=== PATIENT | female | born 1945 | race Caucasian/White ===

== ENCOUNTER → 2018-05-23 | Outpatient (CLI) | payer OTHER, BC ==
[~2018-05-23] VITALS: Ht 157.5 cm; Wt 65.8 kg
[~2018-05-23] MED LIST: ALEVE220 MG PO; CLOTRIMAZOLE-BE15 GM TOP; CYCLOBENZAPRINE5 MG PO; GABAPENTIN 100100 MG PO; MOBIC7.5 MG PO; NORCO 5-325 TA1 EACH PO
--- NOTE | ~2018-05-23 | HPC ---
[facility] [place] [place] [address] PAIN MANAGEMENT CONSULTATION Name: AXEL MILLER Room #: REG [facility].#: [id number] Admission: 05/23/18 Attend Phys: Anuj Golden MD Discharge: Date of : 47 Report #: [id number] THIS REPORT FOR: //name// CC: SIMBA Golden DATE OF SERVICE: 05/23/2018 CHIEF COMPLAINT: Low back pain with radiculopathy on the left involving the S1 distribution. HISTORY OF PRESENT ILLNESS: The patient is a 72-year-old, I am seeing today at an urgent request from Dr. Anna. He called in yesterday asking us to work her in as quickly as possible for excruciating pain into the left leg. She presents to the pain clinic today slightly better than she was yesterday. Her pain intensity yesterday was 10, today is 5/10, but still affecting her ambulation and day-to-day activities. She reports that the pain follows the low back through the hip and down the posterior lateral aspect of the leg. This is consistent with an S1 radiculopathy. This helps a bit with the differential diagnosis and also the location of my chosen injection based upon the findings, which will be discussed below on the MRI. SOCIAL HISTORY: The patient lives in her own home with her disabled son. He has a learning disability, but works fulltime. She denies use of tobacco or alcohol. MEDICATIONS: Naproxen sodium one to two tablets as needed, cyclobenzaprine given and discontinued, hydrocodone given and discontinued, gabapentin 100 mg 3 times daily which was helpful yesterday, meloxicam last dose 0900. ALLERGIES: None. PAST MEDICAL HISTORY: Unremarkable. REVIEW OF SYSTEMS: Positive for fatigue, weakness, hearing loss, some dyspnea on exertion. She complains of nausea and vomiting related to medicines, nocturia, age-related nervousness. PHYSICAL EXAMINATION: GENERAL: Pleasant female. She is not in significant distress today in the office. VITAL SIGNS: Her blood pressure is 152/101, heart rate is 117. NEUROLOGIC: She moves independently from a sitting position and ambulates without difficulty. CHEST: Clear. [facility] [address] [place] [address] PAIN MANAGEMENT CONSULTATION Name: AXEL MILLER Room #: REG [facility]#: [id number] Admission: 05/23/18 Attend Phys: Anuj Golden MD Discharge: Date of : 47 Report #: [id number] CARDIAC: Rhythm is regular. BACK: Tenderness across the lumbosacral segment to the left. She has mild exacerbation of pain with flexion and extension. EXTREMITIES Straight leg raising is positive on the left following an L5-S1 distribution. Deep tendon reflexes are 2+ at the knee and trace at the ankle. Sensation is intact. MRI scan is reviewed. This is helpful at this time and does show left-sided disk pathology that would be consistent with radiculopathy. She has a small left central disk protrusion at L3-L4 extending caudad with a mass effect on the left L4 nerve root. In addition, at L5-S1, there is a modest central to left central focal disk extrusion with considerable mass effect on the thecal sac at that level and on the lateral recess contacting the S1 nerve roots. This would be more consistent with her symptoms. She has stenosis of 0.4 cm at the AP dimension at that level. IMPRESSION: S1 radiculopathy related to left central disk protrusion at L5-S1. RECOMMENDATIONS: Left L5-S1 transforaminal epidural injection given all symptoms to the left at this time. PROCEDURE: She was taken to the fluoroscopic suite, placed prone, skin prepped with ChloraPrep. Skin anesthetized over the L5-S1 neural foramen. Using triplanar fluoroscopic views, a 22-gauge Tuohy epidural needle advanced into the epidural space on the first attempt. 1 mL of Omnipaque was injected and good spread of dye was seen along the S1 nerve root and the L5 nerve root and extending nicely into the epidural space. It was then followed by 3 mL of 0.5% lidocaine with 80 mg of triamcinolone. She tolerated the procedure well, was observed for 45 minutes and discharged. Followup visit is planned in 1 month. By: [id number] Anuj Golden MD /nt
[2018-05-23 10:20] VITALS: BP 152/101
== END | disposition home or self-care (01) ==
LOC: PAIN 06:49
DX: M51.17 Intervertebral disc disorders with radiculopathy, lumbosacral region (principal); H91.90 Unspecified hearing loss, unspecified ear; Z79.899 Other long term (current) drug therapy; Z98.890 Other specified postprocedural states